=== PATIENT | female | born 1960 | race Caucasian/White ===

== ENCOUNTER → 2020-01-31 14:11 | Outpatient (BNVA) | payer MEDICARE, MEDICAID, SELFPAY | PROVIDERS: PCP Hospitalist; Referring Provider Hospitalist; Visit Provider Student in an Organized Health Care Education/Training Program | DX: M17.0 Bilateral primary osteoarthritis of knee (principal) | CPT/HCPCS: 20610; 99212 ==

== ENCOUNTER → 2020-05-30 14:57 | Outpatient (BNVA) | payer MEDICARE, MEDICAID, SELFPAY | PROVIDERS: PCP Hospitalist; Visit Provider Student in an Organized Health Care Education/Training Program | DX: M17.12 Unilateral primary osteoarthritis, left knee (principal); M17.11 Unilateral primary osteoarthritis, right knee | CPT/HCPCS: 20610; 99212 ==

== ENCOUNTER → 2020-07-02 13:59 | Outpatient (BNVA) | payer MEDICARE, MEDICAID, SELFPAY | PROVIDERS: PCP Hospitalist; Visit Provider Obstetrics & Gynecology | DX: R23.2 Flushing (principal) | CPT/HCPCS: 99202 ==

== ENCOUNTER 2020-09-11 13:43 | Outpatient (REF) | payer MEDICARE, MEDICAID, SELFPAY ==
[2020-09-13 22:41] LABS: HPV mRNA E6/E7 rflx Not Detected (Not Detected)
== END 2020-09-11 13:44 | disposition home or self-care (01) ==
LOC: HO.LAB 13:43
PROVIDERS: Visit Provider Obstetrics & Gynecology
DX: Z01.419 Encounter for gynecological examination (general) (routine) without abnormal findings (principal); E03.9 Hypothyroidism, unspecified; R14.0 Abdominal distension (gaseous); R53.83 Other fatigue; Z78.0 Asymptomatic menopausal state
CPT/HCPCS: 87624; 88142

== ENCOUNTER → 2020-09-27 16:03 | Outpatient (BNVA) | payer MEDICARE, MEDICAID, SELFPAY | PROVIDERS: PCP Hospitalist; Visit Provider Student in an Organized Health Care Education/Training Program | DX: M17.0 Bilateral primary osteoarthritis of knee (principal) | CPT/HCPCS: 20610; 99212 ==

== ENCOUNTER → 2020-10-30 11:17 | Outpatient (BNVA) | payer MEDICARE, MEDICAID, SELFPAY | PROVIDERS: Visit Provider Obstetrics & Gynecology | DX: N95.2 Postmenopausal atrophic vaginitis (principal); Z71.89 Other specified counseling | CPT/HCPCS: Q3014 ==

== ENCOUNTER 2021-01-28 13:06 | Outpatient (REF) | payer MEDICARE, MEDICAID, SELFPAY ==
--- NOTE | ~2021-01-28 | MM_ITS ---
EXAMINATION: MM SCREENING DIGITAL BREAST TOMOSYNTHESIS, BILATERAL CLINICAL INFORMATION: Screening. Asymptomatic. The lifetime risk of breast cancer based on the Tyrer-Cuzick Model is 13%. COMPARISON: Outside mammography: 04/17/2014 (), 06/26/2010 (Maggy Alexander). TECHNIQUE: Digital breast tomosynthesis is performed in both the craniocaudal and mediolateral oblique views along with computer-aided detection (CAD). Synthesized 2D images are generated from the tomosynthesis. Additional bilateral exaggerated CC views are provided. FINDINGS: There are scattered areas of fibroglandular density (ACR BI-RADS breast composition Category b). There are no significant masses, abnormal calcifications, or other abnormalities. No developing density or interval architectural changes. The axilla and skin contours are unremarkable. MM/MM tomosynthesis screening BI IMPRESSION: No mammographic evidence of malignancy. ASSESSMENT: BI-RADS 1: Negative RECOMMENDATION: Routine annual mammography screening. This patient's information was entered into a reminder system with a target due date for their next mammogram.
== END 2021-01-28 13:07 | disposition home or self-care (01) ==
LOC: HO.MAMMO 13:06
PROVIDERS: Visit Provider Obstetrics & Gynecology
DX: Z12.31 Encounter for screening mammogram for malignant neoplasm of breast (principal)
CPT/HCPCS: 77063; 77067

== ENCOUNTER → 2021-12-03 14:42 | Outpatient (BNVA) | payer MEDICARE, MEDICAID, SELFPAY | PROVIDERS: Visit Provider Advanced Practice Midwife | DX: Z01.419 Encounter for gynecological examination (general) (routine) without abnormal findings (principal) | CPT/HCPCS: 81003; 99212 ==

== ENCOUNTER 2023-01-29 07:51 | Outpatient (AMB) | payer MEDICARE, MEDICAID, SELFPAY ==
[2023-01-29 07:58] VITALS: BP 124/74; BMI 18.2
--- NOTE | 2023-01-29 07:58 | A.OFFVIS_ITS ---
Intake Vital Signs 01/29/23 07:58 Height 5 ft 6 in Weight 113 lb BMI 18.2 BP 124/74 Intake Visit Reasons: vag dryness/postmenopausal issues Intake Note: The patient agreed to use of a clinical medical transcriptionist during this encounter. Scribed for FRANCISCO Alejandro by Laverne Freeman, clinical medical transcriptionist, on 01/29/2023. Camera Maker: Camera Maker Present (Elisha) Allergies azithromycin [Zithromax Z-Yaya] Allergy (Intermediate, Verified 01/29/23 08:07) gi upset gabapentin Allergy (Intermediate, Verified 01/29/23 08:07) drunken state sumatriptan [Imitrex] Allergy (Intermediate, Verified 01/29/23 08:07) Anxiety tramadol Allergy (Intermediate, Verified 01/29/23 08:07) Anxiety divalproex sodium [Depakote] Allergy (Unknown, Verified 01/29/23 08:07) Vomiting pregabalin Allergy (Unknown, Verified 01/29/23 08:07) Vomiting Antipsychotics Allergy (Intermediate, Uncoded 12/03/21 15:32) Vomiting Erythromycin Allergy (Intermediate, Uncoded 12/03/21 15:32) Vomiting SSRI Allergy (Intermediate, Uncoded 12/03/21 15:32) Vomiting Post menopausal: Yes HPI HPI Comments History of Present Illness Details She is here with complaints of vaginal dryness, burning, and low libido. Currently in a relationship and wants to become sexually active. Reports using OTC treatment in the past, and is interested in Estrace. Hx of migraines with aura. Hx of Sjogren's. [facility] Medical History (Updated 01/29/23 @ 09:02 by Laverne Freeman) Menopausal vaginal dryness History of migraine with aura History of LEEP (loop electrosurgical excision procedure) of cervix complicating Hypothyroid Sjogren's syndrome Ulcerative colitis Chronic fatigue syndrome Interstitial cystitis Migraine Fibromyalgia Primary osteoarthritis of right knee Primary osteoarthritis of left knee Surgical History Hx of lymph node excision History of dilation and curettage Hx of appendectomy Family History Father HTN (hypertension) CVD (cardiovascular disease) Brother HTN (hypertension) Mother CVD (cardiovascular disease) Paternal Grandmother Breast cancer Maternal Grandmother Cervical cancer Colon cancer Social History Household Members: None Housing: House Alcohol intake: never Patient Tobacco Use Status: Former Tobacco user Tobacco use type: Cigarette Substance Use Type: Marijuana Female Reproductive History Menstrual Age of Menarche: 12 Physical Exam Vital Signs: Last Vital Signs BP 124/74 01/29/23 07:58 BMI result Body Mass Index 18.2 Const General: cooperative, healthy appearing, comfortable, no acute distress, well developed, alert and awake Other: General: Yes bladder normal to palpation External Female Exam: normal external appearance and normal appearance of the urethra Speculum Exam - Vagina: normal appearance of the vagina, normal palpation and vagina atrophic Speculum Exam - Cervix: normal appearance of the cervix and normal palpation Bimanual exam- vagina & uterus: normal bimanual exam, normal palpation, bladder normal to palpation and normal palpation Bimanual Exam- Adnexa, other: normal adnexae and no masses Results AMB Urinalysis, Automated UA Leukoctes 0 Adi/uL Last Edit by JEREMIE Lucero on 01/29/23 08:21 UA Nitrite Negative Last Edit by JEREMIE Lucero on 01/29/23 08:21 UA Urobilinogen 0 mg/dL Last Edit by JEREMIE Luecro on 01/29/23 08:2 1 UA Protein 0 mg/dL Last Edit by JEREMIE Lucero on 01/29/23 08:21 UA pH 6.0 Last Edit by JEREMIE Lucero on 01/29/23 08:21 UA Blood 3 Feng/uL Last Edit by JEREMIE Lucero on 01/29/23 08:21 UA Specific [place] 1.015 Last Edit by JEREMIE Lucero on 01/29/23 08:21 UA Ketone Negative Last Edit by JEREMIE Lucero on 01/29/23 08:21 UA Bilirubin 0 mg/dL Last Edit by JEREMIE Lucero on 01/29/23 08:21 UA Glucose 0 mg/dL Last Edit by JEREMIE Lucero on 01/29/23 08:21 Results Reviewed Results Reviewed: Laboratory Last Values Urine pH (Auto) 6.0 01/29/23 08:10 Specific [place] (Auto) 1.015 01/29/23 08:10 Urine Protein (Auto) 0 mg/dL 01/29/23 08:10 Glucose (UA)(Auto) 0 mg/dL 01/29/23 08:10 Urine Ketones (Auto) Negative 01/29/23 08:10 Urine Blood (Auto) 3 Feng/uL 01/29/23 08:10 Urine Nitrite (Auto) Negative 01/29/23 08:10 Urine Bilirubin (Auto) 0 mg/dL 01/29/23 08:10 Urine Urobilinogen (Auto) 0 mg/dL 01/29/23 08:10 Leukocyte Esterase (Auto) 0 Adi/uL 01/29/23 08:10 Assessment & Plan Assessment & Plan (1) Menopausal vaginal dryness: Code(s): N95.1 - Menopausal and female climacteric states Plan: Discussed: Discussed the physiological changes with aging/menopause. Recommend Replens moisturizer, and lubricant. Avoid soaps that can irritate the external vulva. Informed the risks/benefits of Estrace and breast cancer risks; recommended alternative with Replens moisturize. Recommend researching O-rings for her partner via [employer] website if needed. All of her questions and concerns were addressed to the best of my ability and shared decision making. She is agreeable to plan of care. Follow up prn/AG. (2) History of migraine with aura: Code(s): Z86.69 - Personal history of other diseases of the nervous system and sense organs Orders: Orders AMB Urinalysis Automated Today Z13.9 - Encounter for screening, unspecified Coding Level of Care Code Est Pt Level 3 (60827) Diagnoses Menopausal vaginal dryness N95.1 History of migraine with aura Z86.69
== END 2023-01-29 08:54 | disposition home or self-care (01) ==
PROVIDERS: PCP Hospitalist; Visit Provider Advanced Practice Midwife
DX: N95.1 Menopausal and female climacteric states (principal); Z86.69 Personal history of other diseases of the nervous system and sense organs; Z13.9 Encounter for screening, unspecified
CPT/HCPCS: 99213

== ENCOUNTER → 2023-01-29 07:51 | Outpatient (BNVA) | payer MEDICARE, MEDICAID, SELFPAY | PROVIDERS: PCP Hospitalist; Visit Provider Advanced Practice Midwife | DX: N95.1 Menopausal and female climacteric states (principal); Z86.69 Personal history of other diseases of the nervous system and sense organs | CPT/HCPCS: 81003; 99212 ==